=== PATIENT | female | born 1945 | race Caucasian/White ===

== ENCOUNTER → 2016-05-24 | Outpatient (CLI) | payer MEDICARE, OTHER ==
[~2016-05-24] MED LIST: ACCUPRIL10 M1 PO; ASPI325T6 PO; LEVAQUIN 5500 MG/TA1 PO; LOPRESSOR 550 MG/TAB PO
== END ==
LOC: COL.VAS 08:30
DX: I08.0 Rheumatic disorders of both mitral and aortic valves (principal)

== ENCOUNTER 2016-07-05 11:09 | Day surgery (SDC) | payer MEDICARE, OTHER ==
[2016-07-05] VITALS (10 sets, daily range): BP systolic 120–179; BP diastolic 49–66; PULSE 72–95; TEMP 98.1
[~2016-07-05] VITALS: Ht 162.6 cm; Wt 55.9 kg
[2016-07-05 12:15] LABS: CALCIUM 9.9 mg/dL (8.4-10.2); CREATININE, serum 0.9 mg/dL (0.52-1.25); POTASSIUM 3.6 mmol/L (3.4-5.0)
[2016-07-05 12:21] LABS: PROTHROMBIN TIME 11.5 SECONDS (9.7-12.8)
[2016-07-05] MEDS ORDERED: ACCUPRIL10 M1 PO (12:32)
[2016-07-05] MEDS ORDERED: ASPI325T6 PO (12:32)
[2016-07-05 12:46] LABS: HEMATOCRIT 43.4 % (37.0-47.0); HEMOGLOBIN 14.2 g/dl (12.5-16.0); MEAN CELL VOLUME 91 fl (80.0-100.0); MEAN CORPUSCULAR HEMOGLOBIN 30 pg (27.0-31.0); MEAN CORPUSCULAR HGB CONC 33 g/dl (33.0-37.0); PLATELET COUNT 215 K/mm3 (130-400); RED BLOOD COUNT 4.75 M/mm3 (4.10-5.30); REDCELL DISTRIBUTION WIDTH-CV 12.8 % (11.5-14.5); WHITE BLOOD COUNT 5.8 K/mm3 (4.8-10.8)
== END 2016-07-05 17:38 | disposition home health service (06) ==
LOC: COL.CAR 11:09
PROVIDERS: Internal Medicine Cardiovascular Disease
DX: I08.3 Combined rheumatic disorders of mitral, aortic and tricuspid valves (principal); I10 Essential (primary) hypertension; R07.89 Other chest pain
CPT/HCPCS: C1760; J2250; J3010; Q9967

== ENCOUNTER 2016-09-01 07:34 | Emergency (ER) | payer MEDICARE, OTHER ==
[~2016-09-01] VITALS: Ht 162.6 cm; Wt 54.1 kg
[~2016-09-01 07:34] MED LIST changes: -LEVAQUIN 5500 MG/TA1 PO; -LOPRESSOR 550 MG/TAB PO
[2016-09-01 07:41] VITALS: TEMP 98.2
[2016-09-01] MEDS ORDERED: LOPRESSOR 550 MG/TAB PO (07:52)
[2016-09-01 08:11] LABS: BASO % 0.2 % (0.0-2.0); EOS # 0.1 (0.0-0.7); EOS % 0.6 % (0-4.0); GRAN # 10.9 (1.4-6.5); GRAN % 79.2 % (42.2-75.2); HEMATOCRIT 38.8 % (37.0-47.0); HEMOGLOBIN 12.7 g/dl (12.5-16.0); LYMPH # 1.5 (1.2-3.4); LYMPH % 10.6 % (20.0-51.0); MEAN CELL VOLUME 90 fl (80.0-100.0); MEAN CORPUSCULAR HEMOGLOBIN 29 pg (27.0-31.0); MEAN CORPUSCULAR HGB CONC 33 g/dl (33.0-37.0); MEAN PLATELET VOLUME 10.8 fl (7.4-10.4); MONO # 1.2 (0.1-0.6); PLATELET COUNT 265 K/mm3 (130-400); RED BLOOD COUNT 4.32 M/mm3 (4.10-5.30); REDCELL DISTRIBUTION WIDTH-CV 13.2 % (11.5-14.5); WHITE BLOOD COUNT 13.8 K/mm3 (4.8-10.8)
[2016-09-01 08:22] LABS: INR 1.1 (0.8-3.0); PROTHROMBIN TIME 12.3 SECONDS (9.7-12.8)
[2016-09-01 08:25] LABS: PARTIAL THROMBOPLASTIN TIME 31.8 SECONDS (26.0-37.0)
[2016-09-01 08:32] LABS: ADJUSTED CALCIUM 9.5 mg/dL (8.4-10.2); ALANINE AMINOTRANSFERASE 31 U/L (9-52); ALBUMIN 3.9 gm/dL (3.5-5.0); ALKALINE PHOSPHATASE 99 U/L (50-136); ANION GAP 11 mmol/L (7-16); BILIRUBIN,TOTAL 1.1 mg/dL (0.0-1.0); BLOOD UREA NITROGEN 12 mg/dL (7-17); CALCIUM 9.4 mg/dL (8.4-10.2); CARBON DIOXIDE 25 mmol/L (22-30); CHLORIDE 102 mmol/L (98-107); CREATININE, serum 0.69 mg/dL (0.52-1.25); GLUCOSE 106 mg/dL (74-106); LIPASE 43 U/L (23-300); POTASSIUM 3.9 mmol/L (3.4-5.0); SODIUM 139 mmol/L (137-145); TOTAL PROTEIN 7.3 gm/dL (6.4-8.2)
[2016-09-01 08:50] LABS: TROPONIN-I < 0.012 ng/mL (0.000-0.034)
[2016-09-01 09:00] LABS: B-TYPE NATRIURETIC PEPTIDE 2020 pg/mL (0-125)
[2016-09-01] MEDS ORDERED: LEVAQUIN 5500 MG/TA1 PO (10:45)
[2016-09-01 11:46] VITALS: BP 112/71; PULSE 91
== END 2016-09-01 11:59 | disposition home or self-care (01) ==
LOC: COL.ER 07:34
PROVIDERS: Emergency Medicine
DX: R09.1 Pleurisy (principal); I10 Essential (primary) hypertension; Z95.2 Presence of prosthetic heart valve; R06.02 Shortness of breath; R07.1 Chest pain on breathing; R05 Cough; R00.2 Palpitations; Z79.82 Long term (current) use of aspirin
CPT/HCPCS: J2405; J7040; Q9967

== ENCOUNTER 2017-05-17 07:46 | Day surgery (SDC) | payer MEDICARE, OTHER ==
[~2017-05-17] VITALS: Ht 162.6 cm; Wt 55.0 kg
[~2017-05-17 07:46] MED LIST changes: +LEVAQUIN 5500 MG/TA1 PO; +LOPRESSOR 550 MG/TAB PO
[2017-05-17 08:17] VITALS: BP 140/88; PULSE 114; TEMP 98.7
[2017-05-17] MEDS ORDERED: TYLENOL 500MG500 MG PO (08:27)
[2017-05-17 09:50] VITALS: BP 128/59; PULSE 78; TEMP 97.7
[2017-05-17 10:05] VITALS: BP 135/56; PULSE 78
[2017-05-17 10:20] VITALS: BP 122/79; PULSE 71
[2017-05-17 14:07] VITALS: BP 123/74; PULSE 90
== END 2017-05-17 10:40 | disposition home or self-care (01) ==
LOC: SDCO 07:46
DX: K92.1 Melena (principal); K64.1 Second degree hemorrhoids; K57.30 Diverticulosis of large intestine without perforation or abscess without bleeding; R19.7 Diarrhea, unspecified; K59.00 Constipation, unspecified; Z90.49 Acquired absence of other specified parts of digestive tract; Z90.710 Acquired absence of both cervix and uterus
CPT/HCPCS: OP; J2250; J2405; J3010; J7030

== ENCOUNTER → 2017-09-03 | Outpatient (CLI) | payer MEDICARE, OTHER ==
[~2017-09-03] MED LIST changes: +TYLENOL 500MG500 MG PO
== END ==
LOC: MC.RAD 09:50
DX: Z12.31 Encounter for screening mammogram for malignant neoplasm of breast (principal)

== ENCOUNTER → 2018-05-16 | Outpatient (CLI) | payer MEDICARE ==
[~2018-05-16] MED LIST changes: +ADVIL200 MG PO; -LOPRESSOR 550 MG/TAB PO; +TOPROL XL100 MG PO
== END ==
LOC: COL.RAD 12:45
DX: N28.89 Other specified disorders of kidney and ureter (principal); Z90.49 Acquired absence of other specified parts of digestive tract; Z90.710 Acquired absence of both cervix and uterus

== ENCOUNTER → 2019-05-28 | Outpatient (CLI) | payer MEDICARE, OTHER | LOC: COL.RAD 10:01 | DX: R31.0 Gross hematuria (principal) ==

== ENCOUNTER → 2019-09-04 | Outpatient (CLI) | payer MEDICARE, OTHER | LOC: MC.RAD 10:45 | DX: Z12.31 Encounter for screening mammogram for malignant neoplasm of breast (principal) ==

== ENCOUNTER → 2020-05-30 | Outpatient (CLI) | payer MEDICARE, OTHER | LOC: COL.RAD 09:56 | DX: N13.39 Other hydronephrosis (principal) ==

== ENCOUNTER → 2021-07-18 | Outpatient (CLI) | payer MEDICARE, OTHER | LOC: MC.RAD 09:36 | DX: Z12.31 Encounter for screening mammogram for malignant neoplasm of breast (principal) ==

== ENCOUNTER → 2023-03-28 | Outpatient (CLI) | payer MEDICARE | LOC: COL.RAD 14:46 | DX: N13.39 Other hydronephrosis (principal); N30.01 Acute cystitis with hematuria ==